=== PATIENT | female | born 1990 ===

== ENCOUNTER 2018-03-28 16:37 | Emergency (ER) | payer SELFPAY ==
[2018-03-28 16:49] VITALS: RESP 17; TEMP 98.5; O2SAT 100
[2018-03-28] MEDS ORDERED: Lactated Ringer's 1,000 ML IV STA (17:16)
--- NOTE | 2018-03-28 17:21 | ED PDOC ---
HPI: Abdomen Time Seen by Provider: 03/28/18 16:51 Chief Complaint (Nursing): Abdominal Pain Chief Complaint (Provider): LLQ pain History Per: Patient Onset/Duration Of Symptoms: Days (3 months) Location Of Pain/Discomfort: LLQ Quality Of Discomfort: Aching Associated Symptoms: Nausea, Urinary Symptoms (dysuria). denies: Fever, Chills , Vomiting, Diarrhea, Loss Of Appetite, Constipation, Other (vaginal bleeding or discharge) Additional Complaint(s): sudden onset pain LEFT pelvis while at work. Similar pain intermittently for 3 months, no previous evaluation. Had taken OTC meds in the past for same, but feels worse this episode. PMD None. Past Medical History Reviewed: Historical Data, Nursing Documentation, Vital Signs Vital Signs: Last Vital Signs Temp 98.5 F 03/28/18 16:43 Pulse 74 03/28/18 16:43 Resp 17 03/28/18 16:43 BP 110/70 03/28/18 16:43 Pulse Ox 100 03/28/18 20:43 - Medical History PMH: Gastritis - Surgical History Surgical History: (x2) - Family History Family History: States: No Known Family Hx - Social History Current smoker - smoking cessation education provided: Yes Alcohol: Occasional - Home Medications Home Medications: Ambulatory Orders Medication Instructions Recorded Naproxen [Naprosyn] 1 tab PO BID PRN #30 tab 03/28/18 - Allergies Allergies/Adverse Reactions: Allergies Allergy/AdvReac Type Severity Reaction Status Date / Time No Known Allergies Allergy Verified 03/28/18 16:43 Review of Systems ROS Statement: Except As Marked, All Systems Reviewed And Found Negative (and as per HPI) Gastrointestinal: Positive for: Nausea, Abdominal Pain. Negative for: Vomiting , Diarrhea, Constipation, Melena, Hematochezia Genitourinary Female: Positive for: Dysuria, Pelvic Pain. Negative for: Frequency, Vaginal Discharge, Vaginal Bleeding Musculoskeletal: Positive for: Back Pain (LEFT side radiating to posterior leg intermittent also 3 months) Physical Exam - Reviewed Nursing Documentation Reviewed: Yes Vital Signs Reviewed: Yes - Physical Exam Appears: Positive for: Non-toxic, In Acute Distress Head Exam: Positive for: ATRAUMATIC, NORMOCEPHALIC Skin: Positive for: Warm, Dry Eye Exam: Positive for: EOMI, PERRL ENT: Negative for: Pharyngeal Erythema, Tonsillar Exudate Neck: Positive for: Painless ROM, Supple Cardiovascular/Chest: Positive for: Regular Rate, Rhythm. Negative for: Murmur Respiratory: Positive for: Normal Breath Sounds. Negative for: Respiratory Distress Gastrointestinal/Abdominal: Positive for: Bowel Sounds (normal), Soft, Tenderness (LLQ). Negative for: Mass, Distended, Guarding, Rebound Back: Negative for: L CVA Tenderness, R CVA Tenderness, Vertebral Tenderness Extremity: Positive for: Normal ROM. Negative for: Deformity Lymphatic: Negative for: Adenopathy, Inguinal Node Tenderness Neurologic/Psych: Positive for: Alert. Negative for: Motor/Sensory Deficits - Laboratory Results Result Diagrams: 03/28/18 17:33 03/28/18 17:33 - ECG O2 Sat by Pulse Oximetry: 100 Medical Decision Making Medical Decision Making: Time: 1732 Plan: -- CMP -- ED Urine -- ED Urine Dipstick -- CBC with differentials -- Chlamydia/GC RNA, TNA -- Lactated Ringer's IV 1000 mls/hr -- Toradol 15 mg IVP -- Zofran INJ 4 mg IVP -- IV Insertion -- Transvaginal US Time: 1949 US RESULTS FINDINGS: Uterus/cervix: The cervix measures 3.4 cm in length the cervical os is closed. The uterus measures 9 cm x 4.1 cm x 4.9 cm. The endometrium measures 5.1 mm No myometrial mass. Right ovary: The RIGHT ovary measures 1.3 cm x 2 cm x 1.3 cm a simple cyst is present 7.9 mm x 7.4 mm. Normal blood flow. Left ovary: The LEFT ovary measures 3.2 cm and 1.9 cm x 2 cm Normal blood flow. Free fluid: A moderate volume of free fluid is seen in the cul-de-sac. IMPRESSION: No acute findings. Simple cyst RIGHT ovary Negative LEFT ovary Negative uterus and endometrium Thank you for allowing us to participate in the care of your patient. Dictated and Authenticated by: Bigg Lea MD 03/28/2018 7:50 PM Eastern Time ([place] & [place]) Time: 2034 Plan: -- CT Abd/Pelvis w/o contrast EXAM: CT Abdomen and Pelvis Without Intravenous Contrast CLINICAL HISTORY: 27 years old, female; Pain; Abdominal pain; Flank; Left; Additional info: Left flank pain to llq hematuria TECHNIQUE: Axial computed tomography images of the abdomen and pelvis without intravenous contrast. All CT scans at this facility use at least one of these dose optimization techniques: automated exposure control; mA and/or kV adjustment per patient size (includes targeted exams where dose is matched to clinical indication); or iterative reconstruction. COMPARISON: No relevant prior studies available. FINDINGS: Lung bases: Unremarkable. No mass. No consolidation. ABDOMEN: Liver: Unremarkable. Gallbladder and bile ducts: Unremarkable. No calcified stones. No ductal dilation. Pancreas: Unremarkable. No ductal dilation. Spleen: Unremarkable. No splenomegaly. Adrenals: Unremarkable. No mass. Kidneys and ureters: Unremarkable. No stones in either kidney or ureter and no hydronephrosis. Stomach and bowel: Unremarkable. No obstruction. No mucosal thickening. PELVIS: Appendix: Normal appendix. Bladder: Unremarkable. No stones. Reproductive: Unremarkable as visualized. ABDOMEN and PELVIS: Intraperitoneal space: Trace free fluid in the pelvis. No free air. Bones/joints: No acute fracture. No dislocation. Soft tissues: Unremarkable. Vasculature: Unremarkable. No abdominal aortic aneurysm. Lymph nodes: Unremarkable. No enlarged lymph nodes. IMPRESSION: No stones in either kidney or ureter and no hydronephrosis. Thank you for allowing us to participate in the care of your patient. Dictated and Authenticated by: Jose Marshall MD 03/28/2018 9:42 PM Eastern Time ([place] & [place]) On reevaluation pt feels better. DW pt findings and plan of care. Scribe Attestation: Documented by Tonny Cordova acting as a scribe for Dr. Em Andrade. Provider Scribe Attestation: All medical record entries made by the Scribe were at my direction and personally dictated by me. I have reviewed the chart and agree that the record accurately reflects my personal performance of the history, physical exam, medical decision making, and the department course for this patient. I have also personally directed, reviewed, and agree with the discharge instructions and disposition. Disposition - Clinical Impression Clinical Impression: Abdominal pain - Disposition Referrals: [facility] [Outside] ([facility]) Disposition: Routine/Home Disposition Time: 22:00 Condition: IMPROVED Prescriptions: Naproxen [Naprosyn] 1 tab PO BID PRN #30 tab PRN Reason: Pain Instructions: Acute Abdomen (Belly Pain), Adult (DC) Print Language: ALBANIAN
[2018-03-28 17:38] LABS: BASO % 0.6 % (0.0-2.0); EOS % 0.7 % (0.0-4.0); HEMOGLOBIN 12.3 g/dL (12.0-16.0); LYMPH # 1.6 K/uL (1.0-4.3); LYMPH % 24.7 % (20.0-40.0); MEAN CELL VOLUME 86.2 fl (81.0-99.0); MEAN CORPUSCULAR HGB CONC 33.6 g/dL (33.0-37.0); MEAN PLATELET VOLUME 7.9 fl (7.2-11.7); MONO # 0.5 K/uL (0.0-0.8); MONO % 7.3 % (0.0-10.0); NEUT # 4.4 K/uL (1.8-7.0); NEUT % 66.7 % (50.0-75.0); RBC 4.26 Mil/uL (3.80-5.20); RED CELL DISTRIBUTION WIDTH 15.2 % (11.5-14.5); WHITE BLOOD COUNT 6.6 K/uL (4.8-10.8)
[2018-03-28 17:48] LABS: ALB/GLOB RATIO 1.5 (1.0-2.1); ALBUMIN 4.2 g/dL (3.5-5.0); ALT/SGPT 24 U/L (9-52); AST/SGOT 22 U/L (14-36); BLOOD UREA NITROGEN 8 mg/dl (7-17); CALCIUM 9.1 mg/dL (8.4-10.2); GFR NON-AFRICAN AMERICAN > 60
[2018-03-28 22:29] VITALS: BP 111/70; PULSE 61
--- NOTE | 2018-03-29 13:22 | CT ---
Date of service: 03/28/2018 PROCEDURE: CT Abdomen and Pelvis with Oral contrast. HISTORY: LEFT flank pain to LLQ hematuria COMPARISON: Correlation made with prior transvaginal ultrasound earlier same day TECHNIQUE: Contiguous axial images of the abdomen and without oral or intravenous contrast. Additional 2D sagittal and coronal reformats generated. This CT exam was performed using one or more of the following dose reduction techniques: Automated exposure control, adjustment of the mA and/or kV according to patient size, and/or use of iterative reconstruction technique. Radiation dose: Total exam DLP = 194.55 mGy-cm. FINDINGS: LOWER THORAX: Heart size normal. No significant pericardial effusion. Tiny hiatal hernia. Lung bases clear without focal consolidation. No evidence of basilar pneumothorax. LIVER: Unremarkable. No gross lesion or ductal dilatation. GALLBLADDER AND BILE DUCTS: Gallbladder is incompletely distended which presumably accounts for slight thick-walled appearance. Findings likely due to nonfasting state. No intraluminal gallbladder calculi. PANCREAS: Unenhanced pancreas is not well delineated though appears grossly unremarkable. SPLEEN: Unremarkable. No splenomegaly. ADRENALS: No adrenal lesions. KIDNEYS AND URETERS: Unremarkable. No stone or hydronephrosis. No evidence of hydroureter BLADDER: Urinary bladder incompletely distended which may in part account for slight thick-walled appearance. Correlation with urinalysis to exclude cystitis or UTI REPRODUCTIVE: Unremarkable. APPENDIX: Unremarkable. BOWEL: Evaluation of the bowel is somewhat limited due to the lack of oral contrast material. Stomach is distended with food debris liquid and air. Visualized loops of small bowel exhibit normal contour caliber. No evidence acute mechanical small bowel obstruction. Few scattered colonic diverticula seen along the sigmoid colon however no radiographic evidence to suggest acute diverticulitis PERITONEUM: Small to medium amount of free fluid seen in the cul de sac. LYMPH NODES: Unremarkable. No enlarged lymph nodes. VASCULATURE: Unremarkable. No aortic aneurysm. BONES: No fracture or destructive lesion. OTHER FINDINGS: None. IMPRESSION: No evidence of nephrolithiasis or hydronephrosis. There is a small to medium amount of free fluid in the cul de sac. Clinical correlation recommended
--- NOTE | 2018-03-29 14:45 | US ---
Date of service: 03/28/2018 HISTORY: Left-sided pelvic pain r/o torsion COMPARISON: None available. TECHNIQUE: Transvaginal sonographic evaluation of pelvis performed FINDINGS: UTERUS: Measures 9.0 x 4.9 x 4.2 cm. Normal in size and appearance. No fibroid or other mass lesion seen. ENDOMETRIUM: Measures 5.1 mm in diameter. Unremarkable. CERVIX: No cervical abnormality identified. RIGHT OVARY: Measures 2.1 x 1.3 x 1.4 cm. No solid mass. Normal flow. LEFT OVARY: Measures 3.2 x 2.1 x 1.9 cm. No solid mass. Normal flow. FREE FLUID: Moderate amount of free fluid is present in the cul de sac OTHER FINDINGS: None. IMPRESSION: Moderate amount of free fluid is present in the cul de sac.
== END 2018-03-28 22:43 | disposition home or self-care (01) ==
LOC: H.ER 16:37
DX: R10.32 Left lower quadrant pain (principal); F17.200 Nicotine dependence, unspecified, uncomplicated
CPT/HCPCS: 74176; 76830; 80053; 81025; 85025; 87491; 87591; 96374; 99285; J1885; J2405; J7120